=== PATIENT | male | born 1955 | race Caucasian/White ===

== ENCOUNTER → 2020-11-10 | Outpatient (CLI) | payer MEDICARE, OTHER ==
[~2020-11-10] MED LIST: ALLO100T PO; ASPI81CH33 PO; LOSA100T50 PO; MONT10TA10 PO; OLOP0.1D OS
--- NOTE | 2020-11-11 14:07 | SLEEPCENT ---
DATE: 11/10/2020 ORDERED BY: DENISA Crain Nocturnal polysomnography was performed for evaluation of sleep physiology in this patient with a history of snoring and observed apneas. 7 hours and 27 minutes of data were reviewed. There were 361 minutes of sleep identified. Sleep latency was prolonged at 23 minutes. REM latency was normal at 78 minutes. Sleep architecture showed some fragmentation. There were four REM cycles noted. Overall sleep efficiency was 82%. The electrocardiogram showed a sinus rhythm with an average heart rate of 68 beats per minute. EEG showed normal waveforms for wake and sleep. There were 152 respiratory events identified of 10 seconds in duration or greater for an apnea-hypopnea index of 25.3. The events were primarily obstructive, not exclusive to sleep stage nor body position. Arousals from respiratory events occurred 7.3 times per hour and oxygen desaturations were seen into the low 80s. There was also some limb activity noted, but limb movement arousal index was only 2.7. IMPRESSION: Obstructive sleep apnea syndrome (G47.33), apnea-hypopnea index 25.3. RECOMMENDATION: The patient should be encouraged to return to [facility]. In the interim, alcohol and sedative avoidance should be practiced and caution exercised during the operation of motor vehicles.
== END ==
LOC: M SLEEP 20:00
PROVIDERS: ATTEND Physician Assistant
DX: G47.33 Obstructive sleep apnea (adult) (pediatric) (principal)

== ENCOUNTER → 2020-11-11 | Outpatient (CLI) | payer MEDICARE, OTHER ==
--- NOTE | 2020-11-11 13:54 | PFTRPT ---
Height: 72.00 Inches Weight: 220.00 Lbs BSA: 2.22 Diagnosis: R06.00 DATE: 11/11/2020 ORDERING PHYSICIAN: DENISA Crain Pre and post bronchodilator studies have excellent technical quality. Some difficulty with the required maneuver is noted. Forced vital capacity is reduced. FEV1 is in proportion. Obstructive index is therefore normal. Expiratory limit of the flow-volume loop does suggest some difficulty with the required maneuver. Nonspecific limitation cannot be ruled out. No significant bronchodilator response is identified. Total lung capacity is normal. Residual volume is in proportion. Diffusing capacity although reduced is appropriate for alveolar volume. Hemoglobin is acceptable at 14.4. Airway resistance and conductance are normal. IMPRESSION: Nonspecific flow rate reduction versus suboptimal performance of the required maneuver. Minimal reduction in the absolute diffusing capacity. Please correlate clinically. MTDD
== END ==
LOC: M CARPUL 11-10 20:00
PROVIDERS: ATTEND Physician Assistant
DX: R06.00 Dyspnea, unspecified (principal)

== ENCOUNTER → 2020-12-05 | Outpatient (CLI) | payer MEDICARE, OTHER ==
[~2020-12-05] MED LIST changes: +METHACHOLINE KIT (J7674) INH ONE
--- NOTE | 2020-12-05 10:15 | PFTRPT ---
Height: 72.00 Inches Weight: 227.00 Lbs BSA: 2.25 Diagnosis: R06.00 DATE: 12/05/2020 ORDERED BY: Dinh Rowley QUALITY: Study of excellent technical quality. PROCEDURE: Under protocol, methacholine was administered. Even after a maximum dose of 25 mg or 188.875 CDUs, no provocation was ever achieved. IMPRESSION: Negative methacholine challenge study. MTDD
== END ==
LOC: M CARPUL 09:18
PROVIDERS: ATTEND Physician Assistant
DX: R06.00 Dyspnea, unspecified (principal)
CPT/HCPCS: 94070; 95070; J7674

== ENCOUNTER → 2020-12-22 | Outpatient (CLI) | payer MEDICARE, OTHER ==
[~2020-12-22] MED LIST changes: -METHACHOLINE KIT (J7674) INH ONE
--- NOTE | 2020-12-23 14:22 | SLEEPCENT ---
DATE: 12/22/2020 ORDERED BY: Gary Rowley Nocturnal polysomnography was performed for the titration of pressure therapy in this patient with obstructive sleep apnea syndrome, apnea-hypopnea index 25.3. For testing, a ResMed AirFit F20 full-face mask of large size was used. There was 4 cm of water pressure applied to the circuit, and the lights were extinguished. There was 7 hours and 33 minutes of data reviewed. There was 402 minutes of sleep identified. Sleep latency was normal at 8 minutes. REM latency was normal at 79 minutes. Sleep architecture was good with four REM cycles. Overall sleep efficiency 89.9%. The electrocardiogram showed a sinus rhythm with average heart rate of 65 beats per minute. Occasional unifocal ventricular ectopic beats were noted. EEG showed normal waveforms for wake and sleep. Respiratory events were fully palliated with CPAP at a pressure of +7. Limb activity on this event resulted in arousals 5.5 times per hour IMPRESSION: Obstructive sleep apnea syndrome (G47.33). RECOMMENDATION: Nightly use of pressure therapy, 7 cm of water. cc:
== END ==
LOC: M SLEEP 20:00
PROVIDERS: ATTEND Physician Assistant
DX: G47.33 Obstructive sleep apnea (adult) (pediatric) (principal)

== ENCOUNTER → 2022-05-15 | Outpatient (REF) | payer MEDICARE, OTHER ==
[~2022-05-15] MED LIST changes: +ALLO300T2; +LOSA100T45; +LOSA100T45 PO; -LOSA100T50 PO; -MONT10TA10 PO; +MONT10TA97; +MONT10TA97 PO; -OLOP0.1D OS; +OLOP5DRO16 OS; +OLOP5DRO9
== END ==
LOC: M LAB REF 08:30
PROVIDERS: ATTEND Specialist
DX: D69.6 Thrombocytopenia, unspecified (principal)

== ENCOUNTER → 2023-09-01 | Outpatient (CLI) | payer OTHER, MEDICARE ==
[~2023-09-01] MED LIST changes: +ATOR40TA75; +BISO10TA14; +CARB15DR37; +ELIQ5TAB; +FLOM0.4C39 PO; +FOLI1TAB11; +INDO50CA91; +KP F1200 PO; -LOSA100T45; -LOSA100T45 PO; +LOSA100T46; +LOSA100T46 PO; +OLOP2.5D7 OU; -OLOP5DRO16 OS; +OLOP5DRO17 OS; +REFR0.5D8; +SILD100T; +VALA1TAB5; +VITA500T11; +VITMTA PO
== END ==
LOC: M RAD 09:29
PROVIDERS: ATTEND Internal Medicine
DX: Z13.6 Encounter for screening for cardiovascular disorders (principal); Z87.891 Personal history of nicotine dependence

== ENCOUNTER 2024-07-29 13:40 | Emergency (ER) | payer OTHER, MEDICARE ==
[~2024-07-29] VITALS: Ht 182.9 cm; Wt 111.9 kg
[2024-07-29 14:13] LABS: BASO % 0.3 % (0.0-1.0); EOS # 0.1 10^3/uL (0.0-0.5); HEMATOCRIT 39.6 % (42.0-52.0); HEMOGLOBIN 13.6 g/dl (13.5-17.5); LYMPH # 1.7 10^3/uL (1.5-5.0); LYMPH % 28.7 % (24.0-44.0); MEAN CORPUSCULAR HEMOGLOBIN 34.1 pg (27.0-33.0); MEAN CORPUSCULAR HGB CONC 34.3 g/dl (32.0-36.5); MEAN CORPUSCULAR VOLUME 99.2 fl (80.0-96.0); MONO # 0.6 10^3/uL (0.0-0.8); MONO % 10.2 % (2.0-8.0); NEUTROPHILS # 3.6 10^3/uL (1.5-8.5); NEUTROPHILS % 59.3 % (36.0-66.0); PLATELET COUNT, AUTOMATED 102 10^3/uL (150-450); RED BLOOD COUNT 3.99 10^6/uL (4.30-6.10)
[2024-07-29 14:27] LABS: INR 1.27; PARTIAL THROMBOPLASTIN TIME 34.1 SECONDS (24.8-34.2); PROTHROMBIN TIME 16.2 SECONDS (12.5-14.5)
[2024-07-29] MEDS: OXYMETAZOLINE 0.05% NASAL SPRAY ONE (16:45)
[2024-07-29 17:19] VITALS: TEMP 98.1
[2024-07-29 17:40] VITALS: BP 140/90; O2SAT 99
== END 2024-07-29 17:41 | disposition home or self-care (01) ==
LOC: M ED 13:40
DX: R04.0 Epistaxis (principal); I48.91 Unspecified atrial fibrillation; J30.2 Other seasonal allergic rhinitis; Z79.82 Long term (current) use of aspirin; Z79.01 Long term (current) use of anticoagulants; Z79.899 Other long term (current) drug therapy; Z88.2 Allergy status to sulfonamides

== ENCOUNTER → 2025-02-27 | Outpatient (CLI) | payer MEDICARE, OTHER ==
[~2025-02-27] MED LIST changes: -FLOM0.4C39 PO; +TAMS-18 PO
== END ==
LOC: M RAD 11:21
PROVIDERS: ATTEND Student in an Organized Health Care Education/Training Program
DX: D69.6 Thrombocytopenia, unspecified (principal)